=== PATIENT | female | born 1990 | race Caucasian/White ===

== ENCOUNTER 2021-08-18 00:45 | Emergency (ER) | payer BC ==
[~2021-08-18] VITALS: Ht 157.5 cm; Wt 100.2 kg
--- NOTE | 2021-08-18 01:52 | PHYS DOC ---
Past History Additional Past Medical Histor: chronic back pain Past Surgical History: Other Additional Past Surgical Histo: right hip pain, nasal surgery Additional Smoking Information: uses snuff Alcohol Use: Occasionally General Adult EDM: Chief Complaint: MECHANICAL FALL HPI: HPI: 31-year-old female with no significant past medical history, presents to the ED with her coworker who drove her here, (patient consents to his/her/their knowledge and involvement in pts' medical care), complains of bleeding to her forehead, right cheek and nose after patient slipped and fell from standing, forward on concrete, hitting her head. Reports no loss of consciousness. States she had drank a bottle of wine and a six pack of seltzer and went outside to get her door dash. Drinks alcohol approximately 4 days a week. Tetanus was updated in 2013. Is currently on her menses. Denies any other coingestions. Reports history of 2 concussions but no history of intracranial hemorrhage. Is not on any anticoagulants. Review of Systems: Review of Systems: Constitutional: Denies fever or chills Eyes: Denies change in visual acuity HENT: Denies nasal congestion or sore throat Respiratory: Denies cough or shortness of breath Cardiovascular: Denies chest pain or edema GI: Denies abdominal pain, nausea, vomiting, bloody stools or diarrhea : Denies dysuria or hematuria Musculoskeletal: Denies back pain or joint pain Integument: Denies rash or diaphoresis Neurologic: Denies neck pain, focal weakness or sensory changes Endocrine: Denies polyuria or polydipsia Lymphatic: Denies swollen glands Psychiatric: Denies depression or anxiety Allergies: Allergies: Allergies Coded Allergies Type Severity Reaction Last Updated Verified No Known Drug Allergies 08/18/21 No Physical Exam: PE: Constitutional: No ataxia, no acute distress, non-toxic appearance. HENT: Forehead and right cheek abrasions with forehead hematoma, no septal hematoma, no hemotympanum, no fernandez sign, Eyes: Pupils equal and reactive, EOMI, conjunctiva normal, no discharge. Neck: Normal range of motion, supple, Nexus C-spine criteria are negative: There is no post midline tenderness, the patient is not intoxicated, there is a normal level of alertness, there are no focal neurologic deficits and there are no distracting injuries Cardiovascular: S1/2 present, mild tachycardia Lungs & Thorax: Speaking in full sentences, bilateral equal chest rise, no tachypnea or increased work of breathing Abdomen: soft, no tenderness, Skin: Warm, dry, no erythema, no rash. [] Back: No midline spinal step-offs or tenderness, no CVA tenderness. [] Extremities: No tenderness, no cyanosis, no lower extremity edema Neurologic: Alert and oriented X 3, normal motor function, normal sensory function, no focal deficits noted. [] Psychologic: Affect normal, judgement normal, mood normal. [] Current Patient Data: Vital Signs: Vital Signs Date Time Temp Pulse Resp B/P (MAP) Pulse Ox O2 Delivery O2 Flow Rate FiO2 08/18/21 00:55 97.5 105 20 132/87 (102) 96 Room Air EKG: EKG: [] Radiology/Procedures: Radiology/Procedures: IMAGING REPORT Signed PATIENT: MINH GRAF ACCOUNT: [id number] : 1990 LOCATION: ER AGE: 31 SEX: F EXAM STATUS: REG ER ORD. PHYSICIAN: MINH MCCRARY DO REASON: s/p blunt facial injury from fall PROCEDURE: CT HEAD AND CERVICAL SPINE WO EXAM: CT head, facial bones, and cervical spine without contrast INDICATION: Blunt facial injury from fall COMPARISON: None TECHNIQUE: Axial CT imaging through the head, facial bones, and cervical spine without intravenous contrast. Sagittal and coronal reformats were obtained. One or more of the following individualized dose reduction techniques were utilized for this examination: 1. Automated exposure control 2. Adjustment of the mA and/or kV according to patient size 3. Use of iterative reconstruction technique. FINDINGS: CT head: Ventricles and sulci are within normal limits. Moore-white matter differentiation is maintained. No intracranial hemorrhage, acute infarct, or mass lesion. The skull and scalp are intact. Paranasal sinuses and mastoid air cells are clear. Globes and orbits are intact. There is mild soft tissue swelling along the forehead and right periorbital region. CT facial bones: No acute fracture. Paranasal sinuses and mastoid air cells are clear. Globes and orbits are intact. Soft tissue swelling along the forehead and right periorbital region. CT cervical spine: No acute fracture. Alignment is normal. The craniocervical junction and atlantoaxial interval are maintained. Disc spaces and facet joints are normal. Prevertebral soft tissue is normal. IMPRESSION: 1. No acute intracranial abnormality. 2. No acute facial fracture. Mild soft tissue swelling along the forehead and right periorbital region. 3. No acute osseous abnormality of the cervical spine. Electronically signed by: Shelbi Martínez MD (08/18/2021 1:55 AM) [facility] DICTATED AND SIGNED BY: SHELBI MARTÍNEZ MD DATE: 08/18/21126 CC: DENILSON NEVAREZ; MINH MCCRARY DO ~MTH0 0 Heart Score: C/O Chest Pain: No Risk Factors: Risk Factors: DM, Current or recent (<one month) smoker, HTN, HLP, family history of CAD, obesity. Risk Scores: Score 0 - 3: 2.5% MACE over next 6 weeks - Discharge Home Score 4 - 6: 20.3% MACE over next 6 weeks - Admit for Clinical Observation Score 7 - 10: 72.7% MACE over next 6 weeks - Early Invasive Strategies Course & Med Decision Making: Course & Med Decision Making Pertinent Labs and Imaging studies reviewed. (See chart for details) Concern for traumatic forehead hematoma and facial contusions in the setting of alcohol intoxication. Reports her tetanus is up-to-date. Repeat heart rate is 94-I suspect this Vohs from dehydration and intoxication. Patient has no abdominal, chest, extremity or back pain. Patient has steady gait with medical decision-making capacity and is acting appropriately despite heavy alcohol consumption. Wound care instructions given with triple anabolic ointment. Will discharge home with strict ED return precautions were given for repeat head inju ry, confusion, lethargy, nausea, vomiting or severe headache-friend willing to drive patient home. Encouraged urgent outpatient follow-up with PMD and [specialist]. Life-threatening processes were considered but are low suspicion at this time, given history, physical exam and ED workup. Pt was educated on all prescription medications and adverse effects. All patient's questions were answered and pt was stable at time of discharge. Life/limb-threatening differential includes but is not limited to, intracranial hemorrhage, diffuse axonal injury, spinal cord syndrome, unstable cervical fracture or SCIWORA, fractures or joint dislocations, neurovascular injuries, organ injury or laceration, pneumothorax, pneumoperitoneum, pericardial tamponade, unstable pelvic fracture, compartment syndrome, flail chest or respiratory distress, burn injury or asphyxiation I have spoken with the patient and/or caregivers. I explained the patient's condition, diagnoses and treatment plan based on the information available to me at this time. I have answered the patient and/or caregiver's questions and addressed any concerns. The patient and/or caregivers have a good understanding of patient's diagnosis, condition and treatment plan as can be expected at this point. Vital signs have been stable. Patient's condition is stable and appropriate for discharge from the emergency department. Patient will pursue further outpatient evaluation with primary care physician or other designated or consulting physician as outlined in the discharge instructions. The patient and/or caregivers are agreeable to this plan of care and follow-up instructions have been explained in detail. The patient and/or caregivers have received these instructions in written form and have expressed an understanding of the discharge instructions. The patient and/or caregivers are aware that any significant change of condition or worsening of symptoms should prompt immediate return to this or the closest emergency department or call to 9[facility] Disclaimer: Mary Disclaimer: This electronic medical record was generated, in whole or in part, using a voice recognition dictation system. Departure Departure: Impression: Primary Impression: Traumatic hematoma of forehead Additional Impression: Alcohol intoxication Disposition: 01 HOME / SELF CARE / HOMELESS Condition: STABLE Referrals: DENILSON NEVAREZ (PCP) Follow up with your pcp in 1-2 days or [facility] [phone] OR [facility] Phillip [phone] Patient Instructions: Alcohol Intoxication, Alcohol Problems, Scalp Hematoma Additional Instructions: [employer] AND FOR SUBSTANCE ABUSE MANAGEMENT [address] [place] [address] 24-hour crisis line: [phone] EMERGENCY DEPARTMENT GENERAL DISCHARGE INSTRUCTIONS Thank you for coming to [facility] (ED) today and trusting us with you care. We trust that you had a positivie experience in our Emergency Department. If you wish to speak to the department management, you may call the director at [phone]. YOUR FOLLOW UP INSTRUCTIONS ARE FOLLOWS: 1. Do you have a private Doctor? If you do not have a private doctor, please ask for a resource list of physicians or clinics that may be able to assist you with follow up care. 2. The Emergency Physician has interpreted your x-rays. The X-Ray specialist will also review them. If there is a change in the findings, you will be notified in 48 hours when at all possible. 3. A lab test or culture has been done, your results will be reviewed and you will be notified if you need a change in treatment. ADDITIONAL INSTRUCTIONS AND INFORMATION: 1. Your care today has been supervised by a physician who is specially trained in emergency care. Many problems require more than one evaluation for a complete diagnosis and treatment. We recommend that you schedule your follow up appointment as recommended to ensure complete treatment of you illness or injury. If you are unable to obtain follow up care and continue to have a problem, or if your condition worsens, we recommend that you return to the ED. 2. We are not able to safely determine your condition over the phone nor are we able to give sound medical advice over the phone. For these safety reasons, if you call for medical advice we will ask you to come to the ED for further evaluation. 3. If you have any questions regarding these discharge instructions please call the ED at [phone]. SAFETY INFORMATION: In the interest of safety, wellness, and injury prevention; we encourage you to wear your sealbelt, if you smoke; quite smoking, and we encourage family to use a protective helmet for bicycling and other sporting events that present an increased risk for head injury. IF YOUR SYMPTOMS WORSEN OR NEW SYMPTOMS DEVELOP, OR YOU HAVE CONCERNS ABOUT YOUR CONDITION; OR IF YOUR CONDITION WORSENS WHILE YOU ARE WAITING FOR YOUR FOLLOW UP APPOINT MENT; EITHER CONTACT YOUR PRIMARY CARE DOCTOR, THE PHYSICIAN WHOSE NAME AND NUMBER YOU WERE GIVEN, OR RETURN TO THE ED IMMEDIATELY. MINH MCCRARY DO Aug 18, 2021 01:52
--- NOTE | 2021-08-18 01:57 | RAD ---
EXAM: CT head, facial bones, and cervical spine without contrast INDICATION: Blunt facial injury from fall COMPARISON: None TECHNIQUE: Axial CT imaging through the head, facial bones, and cervical spine without intravenous co ntrast. Sagittal and coronal reformats were obtained. One or more of the following individualized dose reduction techniques were utilized for this examinat ion: 1. Automated exposure control 2. Adjustment of the mA and/or kV according to patient size 3. Use of iterative reconstruction technique. FINDINGS: CT head: Ventricles and sulci are within normal limits. Moore-white matter differentiation is maintained. No in tracranial hemorrhage, acute infarct, or mass lesion. The skull and scalp are intact. Paranasal sinus es and mastoid air cells are clear. Globes and orbits are intact. There is mild soft tissue swelling along the forehead and right periorbital region. CT facial bones: No acute fracture. Paranasal sinuses and mastoid air cells are clear. Globes and orbits are intact. S oft tissue swelling along the forehead and right periorbital region. CT cervical spine: No acute fracture. Alignment is normal. The craniocervical junction and atlantoaxial interval are tashia ntained. Disc spaces and facet joints are normal. Prevertebral soft tissue is normal. IMPRESSION: 1. No acute intracranial abnormality. 2. No acute facial fracture. Mild soft tissue swelling along the forehead and right periorbital regio n. 3. No acute osseous abnormality of the cervical spine. Electronically signed by: Shelbi Martínez MD (08/18/2021 1:55 AM) [facility]
[2021-08-18 02:10] VITALS: BP 127/86
== END 2021-08-18 02:10 | disposition home or self-care (01) ==
LOC: ER 00:45
DX: S00.83XA Contusion of other part of head, initial encounter (principal); F10.129 Alcohol abuse with intoxication, unspecified; Y90.9 Presence of alcohol in blood, level not specified; G89.29 Other chronic pain; W01.0XXA Fall on same level from slipping, tripping and stumbling without subsequent striking against object, initial encounter; Y93.89 Activity, other specified; Y92.89 Other specified places as the place of occurrence of the external cause; Y99.8 Other external cause status
CPT/HCPCS: 70450; 70486; 72125; 99284